=== PATIENT | male | born 1985 | race Caucasian/White ===

== ENCOUNTER 2016-10-09 15:02 | Emergency (ER) | payer OTHER ==
[2016-10-09 15:10] VITALS: BP 146/92
--- NOTE | 2016-10-09 15:10 | ER Document Report ---
ED Medical Screen (RME) - General Stated Complaint: RASH Mode of Arrival: Ambulatory Information source: Patient Notes: pt presents with possible poison renate exposure. reports pulling bhavik . Now has swelling, oozing, erythema to left leg. Has same to other body parts but left leg is worse. Reports real itchy. I have greeted and performed a rapid initial assessment of this patient. A comprehensive ED assessment and evaluation of the patient, analysis of test results and completion of the medical decision making process will be conducted by additional ED providers.
--- NOTE | 2016-10-09 17:23 | ER Document Report ---
HPI - HPI Patient complains to provider of: rash Onset: Last week Onset/Duration: Gradual Quality of pain: Other - Itchy Severity: Moderate Pain Level: 2 Context: This is a 31-year-old man that was doing yard work that presents with rash to the left lower extremity, bilateral upper extremities. Associated Symptoms: None Exacerbated by: Denies Relieved by: Denies Similar symptoms previously: No Recently seen / treated by doctor: No - ROS ROS below otherwise negative: Yes - CONSTITUTIONAL Constitutional: DENIES: Fever, Chills - EENT EENT: DENIES: Sore Throat - NEURO Neurology: DENIES: Headache - CARDIOVASCULAR Cardiovascular: DENIES: Chest pain - RESPIRATORY Respiratory: DENIES: Trouble Breathing - GASTROINTESTINAL Gastrointestinal: DENIES: Abdominal Pain - URINARY Urinary: DENIES: Dysuria - DERM Skin Color: Normal Past Medical History - General Information source: Patient - Social History Smoking Status: Never Smoker Cigarette use (# per day): No Chew tobacco use (# tins/day): No Frequency of alcohol use: None Drug Abuse: None Lives with: Alone Family History: Reviewed & Not Pertinent Patient has suicidal ideation: No Patient has homicidal ideation: No - Past Medical History Cardiac Medical History: Reports: None Pulmonary Medical History: Reports: None EENT Medical History: Reports: None Neurological Medical History: Reports: None Endocrine Medical History: Reports: None Renal/ Medical History: Denies: Hx Peritoneal Dialysis Malignancy Medical History: Reports None GI Medical History: Reports: None Musculoskeltal Medical History: Reports None Skin Medical History: Reports None Psychiatric Medical History: Reports: Hx Attention Deficit Hyperactivity Disorder Vertical Provider Document - CONSTITUTIONAL Agree With Documented VS: Yes Exam Limitations: No Limitations General Appearance: WD/WN - INFECTION CONTROL TRAVEL OUTSIDE OF THE [place] IN LAST 30 DAYS: No - HEENT HEENT: Atraumatic, Normocephalic, PERRLA - NECK Neck: Normal Inspection - RESPIRATORY O2 Sat by Pulse Oximetry: 99 - DERM Integumentary: Rash Notes: Patient does have an erythematous rash over the left lower extremity with it extends behind the knee. There is areas with weeping. There are definite linear reactions within the erythema. The patient also has erythematous linear rashes to bilateral upper extremities. Course - Re-evaluation Re-evalutation: 10/09/16 17:19 Note: There is one area of concern which is on the left lower extremity behind the knee. There is weeping and it is slightly indurated. There is no fluctuance. There was some concern for secondary infection as the patient states it's been irritating him with his pants. In addition to steroids, we will give him some Keflex. He's not having significant pain and does not require any stronger pain medicines. We will rewrap the lower extremity with Xeroform and Kerlix and a stocking sleeve. He will be going back to [place] of advised him to follow-up with his doctor down there. - Vital Signs Vital signs: Temp Pulse Resp BP Pulse Ox 97.9 F 89 14 146/92 H 99 10/09/16 15:08 10/09/16 15:08 10/09/16 15:08 10/09/16 15:08 10/09/16 15:08 Discharge - Discharge Clinical Impression: Toxicodendron dermatitis Condition: Fair Disposition: HOME, SELF-CARE Instructions: Poison Analilia ([facility]) Additional Instructions: Recommendations: See the instruction sheet on poison analilia. Take the prednisone as follows: 6 tablets (60 mg) daily for 3 days, Then 5 tablets (50 mg) daily for 3 days, then 4 tablets (40 mg) daily for 3 days, Then 3 tablets (30 mg) daily for 3 days, Then 2 tablets (20 mg) daily for 2 days, Then 1 tablet (10 mg) daily for 2 days, then stop. Take the Keflex as prescribed. Follow-up with your primary care doctor when back in [place]. Prescriptions: Cephalexin Monohydrate [Keflex 500 mg Capsule] 500 mg PO QID #20 capsule Prednisone 10 mg PO DAILY #60 tablet
== END 2016-10-09 18:02 | disposition home or self-care (01) ==
LOC: ER 15:02
DX: L30.8 Other specified dermatitis (principal); R21 Rash and other nonspecific skin eruption
CPT/HCPCS: 99282